=== PATIENT | female | born 1930 | race Caucasian/White ===

== ENCOUNTER 2017-12-07 10:58 | Emergency (ER) | payer OTHER ==
[~2017-12-07] VITALS: Ht 167.6 cm; Wt 93.6 kg
[2017-12-07 11:18] LABS: HEMATOCRIT 42.2 % (36.0-46.0); MCH 31.6 PG (29.0-34.0); MCHC 33.2 G/DL (30.0-36.0); MCV 95.3 FL (83-99); PLATELET COUNT 161 K/uL (156-360); RBC DIS.WIDTH-CV 13.2 % (11.8-14.6); RBC DIS.WIDTH-SD 46.5 % (39-53); RED BLOOD COUNT 4.43 M/uL (3.80-5.20); WHITE BLOOD COUNT 6.3 K/uL (4.1-10.2)
[2017-12-07 11:26] LABS: ALBUMIN 3.9 g/dL (3.2-4.8); CHLORIDE 104 mEq/L (99-109); POTASSIUM 4.2 mEq/L (3.7-5.4); SODIUM 142 mEq/L (136-147)
[2017-12-07 11:28] LABS: GLUCOSE 121 mg/dL (70-99); TOTAL PROTEIN 6.9 g/dL (6.4-8.3)
[2017-12-07 11:30] LABS: TOTAL BILIRUBIN 1.8 mg/dL (0.0-1.0)
[2017-12-07 11:32] LABS: ALKALINE PHOSPHATASE 89 IU/L (3-129); CREATININE 1.3 mg/dL (0.6-1.3); GFR ESTIMATE (CALCULATED) 41 mL/min/
[2017-12-07 11:33] LABS: UREA NITROGEN (BUN) 45 mg/dL (9-23)
[2017-12-07 11:34] LABS: AST (GOT) 35 IU/L (2-34)
[2017-12-07 11:35] LABS: ALT (GPT) 26 IU/L (3-49); LIPASE 35 U/L (1.0-51.0)
[2017-12-07 15:48] LABS: APPEARANCE SL.HAZY ((CLEAR)); BILIRUBIN NEGATIVE; BLOOD MODERATE; COLOR YELLOW ((YELLOW)); GLUCOSE (STRIP) NEGATIVE; KETONES 5; LEUKOCYTES LARGE; NITRITE NEGATIVE; PROTEIN (STRIP) 30; SPECIFIC GRAVITY 1.026 (1.000-1.030)
[2017-12-07 16:01] LABS: BACTERIA NONE SEEN /HPF; CALCIUM OXALATE CRYSTALS 1+ /HPF; EPITHELIAL CELLS RARE /HPF; MUCUS TRACE /LPF; RED BLOOD CELLS 0-5 /HPF (0-5); UCUL ADDED? YES; WHITE BLOOD CELLS 20-30 /HPF (0-5)
[2017-12-07] MEDS ORDERED: MACROBID100 MG PO (16:16)
[2017-12-07 16:37] VITALS: BP 168/98
== END 2017-12-07 16:37 | disposition home or self-care (01) ==
LOC: EME 10:58
DX: N39.0 Urinary tract infection, site not specified (principal); R11.2 Nausea with vomiting, unspecified; R19.7 Diarrhea, unspecified; R53.1 Weakness; R26.2 Difficulty in walking, not elsewhere classified; I48.91 Unspecified atrial fibrillation; G89.29 Other chronic pain; M54.5 Low back pain
CPT/HCPCS: 71046; 80053; 81003; 83690; 85027; 87086; 93005; 99281; 99283; J7030